=== PATIENT | male | born 1985 | race African-American/Black ===

== ENCOUNTER 2023-08-22 20:41 | Emergency (ER) | payer SELFPAY ==
[2023-08-22 20:52] VITALS: BP 113/84; PULSE 73; RESP 20; TEMP 97.8; BMI 26.1
[2023-08-22] MEDS: IBUPROFEN 400 MG TABLET (FP) PO ONE (22:13)
== END 2023-08-22 22:58 | disposition home or self-care (01) ==
LOC: JER 20:41
DX: R20.0 Anesthesia of skin (principal); K08.89 Other specified disorders of teeth and supporting structures
CPT/HCPCS: 99283-25